=== PATIENT | male | born 1980 | race Caucasian/White ===

== ENCOUNTER 2017-05-22 14:56 | Emergency (ER) | payer MEDICAID ==
[~2017-05-22] VITALS: Ht 180.3 cm; Wt 60.1 kg
[~2017-05-22 14:56] MED LIST: MOTRIN
[2017-05-22 15:11] VITALS: BP 123/77
[2017-05-22] MEDS ORDERED: KETOROLAC 60 MG/2 ML VIAL IM ONE (15:40)
--- NOTE | 2017-05-22 15:45 | NUR ---
PATIENT PRESENTS TO ED WITH C/O INTERMITTENT RECTAL PAIN WITH BLEEDING AT TIME X 3 MONTHS---CHRONIC CONSTIPATION, FATIGUE, NAUSEA AND LLQ PAIN AFTER EATING HX---HEMORRHOIDS RX---MULTI-VITAMINS, PROBIOTICS; DENIES N/V/D; SKIN IS PINK/WARM/DRY; AAOX4 WITH EVEN AND STEADY GAIT; LUNGS CLEAR BL; HR EVEN AND REGULAR; PT DENIES ANY FEVER, CP, SOB, OR COUGH AT THIS TIME; PATIENT STATES INTERMITTENT RECTAL PAIN OF 10/10 AT THIS TIME; VSS; PATIENT POSITIONED FOR COMFORT; HOB ELEVATED; BEDRAILS UP X2; BED DOWN. ER MD MADE AWARE OF PT STATUS.
[2017-05-22 16:35] VITALS: BP 101/63
--- NOTE | 2017-05-22 16:35 | NUR ---
Patient discharged with v/s stable. Written and verbal after care instructions given and explained. Patient alert, oriented and verbalized understanding of instructions. Ambulatory with steady gait. All questions addressed prior to discharge. ID band removed. Patient advised to follow up with PMD. Rx of MOTRIN, COLACE, ANUSOL given. Patient educated on indication of medication including possible reaction and side effects. Opportunity to ask questions provided and answered.
== END 2017-05-22 16:35 | disposition home or self-care (01) ==
LOC: MED 14:56
DX: K64.9 Unspecified hemorrhoids (principal); K62.89 Other specified diseases of anus and rectum; K59.00 Constipation, unspecified; F17.210 Nicotine dependence, cigarettes, uncomplicated
CPT/HCPCS: 96372; 99283; J1885